=== PATIENT | female | born 1990 | race Caucasian/White ===

== ENCOUNTER 2020-06-25 19:31 | Emergency (ER) | payer BC, SELFPAY ==
[2020-06-25 19:43] VITALS: BP 120/86; PULSE 97; RESP 18; TEMP 37.4; O2SAT 100
--- NOTE | 2020-06-25 19:48 | ED.SKABFB ---
HPI - Skin/Abscess/Foreign Bdy General Chief complaint: Skin/Abscess/Foreign Body Stated complaint: hives Time Seen by Provider: 06/25/20 19:42 Source: patient and RN notes reviewed Mode of arrival: ambulatory Limitations: no limitations History of Present Illness HPI narrative: Patient presents today complaining of pruritic hives that started on her low back and right buttock this morning. They have spread to include most of the body surface throughout the day. Denies hives to the face, swelling of the face, lips, tongue, scratchiness in the throat, shortness of breath, or difficulty swallowing. She has tried hydrocortisone with relief this morning, but it did not provide relief this afternoon. She has not tried any other treatment prior to arrival. No changes in products at home. Known new animal or plant exposure. No new medication or food. No recent illness. MD complaint: rash Related Data Home Medications Medication Instructions Recorded Confirmed etonogestrel-ethinyl estradiol 1 vag ring VAGINAL DIRECTED 06/25/20 06/25/20 [NuvaRing] Allergies Allergy/AdvReac Type Severity Reaction Status Date / Time No Known Allergies Allergy Verified 06/25/20 19:45 Review of Systems Review of Systems: Narrative: CONSTITUTIONAL: Denies body aches, fever, chills, or sweats. EYES: Denies visual changes, redness, or discharge. ENT: Denies rhinorrhea, congestion, sore throat, or otalgia. CARDIOVASCULAR: Denies chest pain, palpitations, or edema. RESPIRATORY: Denies cough or dyspnea. GASTROINTESTINAL: Denies abdominal pain, nausea, vomiting, or diarrhea. GENITOURINARY: Denies dysuria or hematuria. SKIN: Denies wounds.+ Hives MUSCULOSKELETAL: Denies back pain, joint pain, or myalgia. NEUROLOGIC: Denies headache, numbness, tingling, or weakness. PSYCH: Denies depression or anxiety. PMFSH Comments At time of signature, I have reviewed and agree with nursing past medical, surgical, social and family history unless otherwise noted. Please see nursing chart for further information. There is no relevant family history pertinent to the presenting complaint Exam Narrative: Exam Narrative: GENERAL: Well-appearing, well-nourished, and in no acute distress. HEAD: Normocephalic, atraumatic. EYES: EOMI. No redness or drainage. Conjunctivae normal. ENT: Mucous membranes pink and moist. Nares clear. No rhinorrhea. Throat normal. Uvula midline. Facial swelling noted. NECK: Normal AROM. Supple. No lymphadenopathy. CHEST: No respiratory distress. Clear to auscultation. HEART: Regular rate and rhythm. No murmur appreciated. Normal peripheral pulses. EXTREMITIES: Normal range of motion. No edema. SKIN: Warm, dry. Capillary refill normal. Normal skin turgor. Very large urticarial lesions to all extremities, diffusely on the back and abdomen, as well as the chest. No rash to the face or neck noted. NEURO: No focal deficits. Alert and oriented x3. Gait steady. PSYCH: Normal affect. No signs of depression or anxiety. Course Vital Signs Vital signs: Vital Signs Temperature 99.4 F 06/25/20 19:43 Pulse Rate 97 06/25/20 19:43 Respiratory Rate 18 06/25/20 19:43 Blood Pressure 120/86 06/25/20 19:43 Pulse Oximetry 100 06/25/20 19:43 Temperature 99.4 F 06/25/20 19:43 Pulse Rate 97 06/25/20 19:43 Respiratory Rate 18 06/25/20 19:43 Blood Pressure 120/86 06/25/20 19:43 Pulse Oximetry 100 06/25/20 19:43 Reviewed. Pt has been instructed to follow up with her PCP regarding her elevated blood pressure today. MDM - Skin/Abscess/Foreign Bdy Differential Diagnosis Differential diagnosis: Likely abscess of skin or subcutaneous tissue, urticaria, allergic reaction to drug, eczema, insect bites, impetigo and contact dermatitis Critical Care Time Critical Care Time Critical Care Time: No Discharge Plan Discharge Clinical Impression: Hives Patient Disposition: Home, Self-Care Condition: Stabl
== END 2020-06-25 19:51 | disposition home or self-care (01) ==
PROVIDERS: Emergency Provider Nurse Practitioner; PCP Family Medicine Adolescent Medicine
DX: L50.9 Urticaria, unspecified (principal)
CPT/HCPCS: 99203; G0463